=== PATIENT | female | born 1970 | race African-American/Black ===

== ENCOUNTER 2019-10-31 04:52 | Inpatient (IN) | payer OTHER ==
[2019-10-24 19:00] VITALS: BMI 25.7
[2019-10-31] MEDS ORDERED: LIDOCAINE HCL/PF 2% SDV 5ML VIAL ONE (07:41)
[2019-10-31] MEDS ORDERED: DEXAMETHASONE SOD PHOSPHATE 4 MG/1 ML VIAL ONE (07:41)
[2019-10-31] MEDS ORDERED: ROCURONIUM BROMIDE 50 MG/5 ML SYRINGE ONE ×2 (07:41→10:57)
[2019-10-31] MEDS ORDERED: MIDAZOLAM HCL 2 MG/2 ML SINGLE DOSE VIAL ONE ×2 (07:41→08:45)
[2019-10-31] MEDS ORDERED: SUCCINYLCHOLINE CHLORIDE 200 MG/10 ML SYRINGE ONE (07:41)
[2019-10-31] MEDS ORDERED: fentaNYL CITRATE 250 MCG/5 ML VIAL ONE (07:41)
[2019-10-31] MEDS ORDERED: PROPOFOL 20 ML ONE ×3 (07:41→09:37)
[2019-10-31] MEDS ORDERED: BACITRACIN 15 GM TUBE TOPICAL OINTMENT ONE (08:43)
[2019-10-31] MEDS ORDERED: BUPIVACAINE LIPOSOME/PF (EXPAREL) 266 MG/20 ML VIAL ONE (08:45)
--- NOTE | 2019-10-31 09:24 | HP ---
Admitting History and Physical - Admission Chief Complaint: Fibroid uterus History of Present Illness: 49 yo Para 2, with fibroid uterus, is pre op for abdominal hysterectomy. History Source: Patient Limitations to Obtaining History: No Limitations - Past Medical History ...LMP: 10/19/19 ...: No ...Para: 2 - Past Surgical History Past Surgical History: Yes: None - Smoking History Smoking history: Never smoked - Alcohol/Substance Use Hx Alcohol Use: Yes (OCCAS) - Social History Usual Living Arrangement: Yes: Alone History of Recent Travel: No Home Medications - Allergies Allergies/Adverse Reactions: Allergies Allergy/AdvReac Type Severity Reaction Status Date / Time peach Allergy Verified 10/31/19 07:42 BERRIES Allergy Uncoded 10/31/19 07:42 - Home Medications Home Medications: Ambulatory Orders Albuterol Sulfate Inhaler - [Ventolin Hfa Inhaler -] 1 - 2 inh PO PRN 10/24/19 Ascorbic Acid [Vitamin C] 500 mg PO DAILY 10/24/19 Biotin 2 tab PO DAILY 10/24/19 Magnesium Amino Acid Chelate [Magnesium] 100 mg PO DAILY 10/24/19 Multivitamin [One-Daily Multi-Vitamin] 1 each PO DAILY 10/24/19 Norgestimate-Ethinyl Estradiol [Femynor 28 Tablet] 1 each PO HS 10/24/19 Zinc Amino Acid Chelate [Zinc] 50 mg PO DAILY 10/24/19 Bimatoprost [Lumigan] 1 drop IO HS 10/31/19 Family Medical History Family History: Unremarkable Review of Systems - Review of Systems Constitutional: reports: No Symptoms Eyes: reports: No Symptoms HENT: reports: No Symptoms Neck: reports: No Symptoms Cardiovascular: reports: No Symptoms Respiratory: reports: No Symptoms Gastrointestinal: reports: No Symptoms Genitourinary: reports: Vaginal Bleeding Breasts: reports: No Symptoms Reported Musculoskeletal: reports: No Symptoms Integumentary: reports: No Symptoms Neurological: reports: No Symptoms Endocrine: reports: No Symptoms Hematology/Lymphatic: reports: No Symptoms Psychiatric: reports: No Symptoms Pain Intensity: 0 Physical Examination Vital Signs: Vital Signs Temperature 98.0 F 10/31/19 07:34 Pulse Rate 75 10/31/19 07:34 Respiratory Rate 16 10/31/19 07:34 Blood Pressure 123/66 10/31/19 07:34 O2 Sat by Pulse Oximetry (%) 100 10/31/19 07:33 Constitutional: Yes: Well Nourished Eyes: Yes: Conjunctiva Clear HENT: Yes: Atraumatic Neck: Yes: Supple Cardiovascular: Yes: Regular Rate and Rhythm Respiratory: Yes: Regular Gastrointestinal: Yes: Normal Bowel Sounds ...Rectal Exam: Yes: WNL Renal/: Yes: WNL Breast(s): Yes: WNL Musculoskeletal: Yes: WNL Extremities: Yes: Deformity Edema: No Integumentary: Yes: WNL Neurological: Yes: Alert, Oriented ...Motor Strength: WNL Psychiatric: Yes: Alert, Oriented Problem List - Problems (1) Leiomyoma of body of uterus Problems reviewed: Yes Code(s): D25.9 - LEIOMYOMA OF UTERUS, UNSPECIFIED Assessment/Plan Leiomyoma of the uterus Pre op for YASMINE / BSO Consent signed Anesthesia to see patient
[2019-10-31] MEDS ORDERED: ceFAZolin SODIUM 1 GM VIAL IVPB ONE (09:38)
[2019-10-31] MEDS ORDERED: ceFAZolin SODIUM 1 GM VIAL ONE (09:41)
[2019-10-31] MEDS ORDERED: ONDANSETRON 4 MG/2 ML VIAL IVPUSH PRN (10:25)
[2019-10-31] MEDS ORDERED: oxyCODONE HCL 5 MG TABLET PO PRN (10:27)
[2019-10-31] MEDS ORDERED: NEOSTIGMINE METHYLSULFATE 0.5 MG/ML - 10 ML MDV ONE (12:10)
[2019-10-31] MEDS ORDERED: GLYCOPYRROLATE 0.2 MG/1 ML VIAL ONE (12:10)
--- NOTE | 2019-10-31 13:39 | OP ---
Operative Note - Note: Operative Date: 10/31/19 Pre-Operative Diagnosis: Cosmetic Dissatisfaction Appearance of Abdomen Operation: Full Abdominoplasty done with Total Abdominal Hysterectomy Post-Operative Diagnosis: Same as Pre-op Surgeon: Hollis Morin Anesthesia: General Specimens Removed: 50cc Operative Report Dictated: Yes
--- NOTE | 2019-10-31 14:10 | OP ---
DATE OF OPERATION: 10/31/2019 PREOPERATIVE DIAGNOSIS: Cosmetic dissatisfaction with the appearance of the abdomen. POSTOPERATIVE DIAGNOSIS: Cosmetic dissatisfaction with the appearance of the abdomen. PROCEDURE PERFORMED: Full abdominoplasty done with total abdominal hysterectomy. SURGEON: Hollis Aldrich MD ANESTHESIA: General via endotracheal tube. BRIEF HISTORY: The patient is scheduled for a total abdominal hysterectomy by Dr. Toledo and requests abdominoplasty done at the same time. DESCRIPTION OF PROCEDURE: The patient was on the operating room table in supine position, and general anesthesia was administered by the anesthesiologist. The area of the abdomen was prepped and draped in the usual sterile fashion, and a Ness catheter had been inserted prior to prep. The abdominoplasty incision was marked with the patient in a standing position preoperatively, and this incision was made using a No. 10 scalpel blade and carried down sharply through subcutaneous tissues. Hemostasis was achieved with the electrocautery, and the cautery was used to continue the dissection. The dissection continued in the plane just superficial to the rectus abdominal fascia up to the level of the umbilicus. At this point, Dr. Toledo came in and performed a total abdominal hysterectomy through this open abdominal wound. At the completion of the total abdominal hysterectomy, I then continued and released the umbilicus with a circumumbilical incision and then continued dissection superiorly to the level of the costal margin. The diastasis recti was repaired using 2-0 Ethibond suture in interrupted [id number] fashion for the upper and lower abdomen, although the upper abdominal diastasis was wider. The patient was moved into a flexed position, and excess skin was measured and marked and included skin below the umbilicus and the umbilical incision was left to prevent too much tension on the resulting incision. Two around 15-Syriac Placido-Brian drains were inserted through separate stab incisions in the groin, and closure was begun. Closure was in layered fashion. Deep tissues were closed with No. 3-0 and 4-0 Biosyn suture in interrupted buried fashion, a 4-0 V-Loc 90 suture in continuous fashion was used for skin closure. The umbilicus was retrieved through a new crescent-shaped incision in the midline at the level of the iliac crest, and this was retrieved with a tonsil clamp on a silk suture tag that had been placed previously. The umbilical incision was then closed using 3-0 Biosyn suture for deep tissues and 4-0 and 5-0 nylon suture for skin. Once the wounds were completely closed, sterile dressings were applied. Xeroform was then used followed by combine pads and secured with a surgical garment. The patient was taken awoken from anesthesia without difficulty and taken from the operating room to the recovery room in satisfactory condition having tolerated the procedure well. HOLLIS ALDRICH M.D. /[id number]
[2019-10-31] MEDS ORDERED: IBUPROFEN 800 MG/8 ML IJ IVPB PRN (14:17)
--- NOTE | 2019-10-31 14:17 | OP ---
Operative Note - Note: Operative Date: 10/31/19 Pre-Operative Diagnosis: Leiomyoma of the uterus Operation: Abdominal hysterectomy / Bilateral salpingoophorectomy Findings: Enlarged irregular shape uterus Post-Operative Diagnosis: Same as Pre-op Surgeon: Katerine Toledo Clay Puddler: Hollis Morin Anesthesia: General Specimens Removed: Uterus / Fallopian tubes / Ovaries / Myoma Estimated Blood Loss (mls): 200
[2019-10-31] MEDS ORDERED: ACETAMINOPHEN 1000 MG/100 ML VIAL (NON FORMULARY) IVPB ONE (15:00)
[2019-10-31] MEDS ORDERED: ACETAMINOPHEN INJECTION 100 ML IVPB ONE (15:00)
[2019-10-31] MEDS: LACTATED RINGERS SOLUTION 1,000 ML IV SCH (17:17)
[2019-10-31] MEDS: DEXTROSE 5%-LACTATED RINGERS 1,000 ML IV SCH (17:34)
[2019-10-31] MEDS: CEFAZOLIN 2 GM/D5W 2 GM/50 ML ML IVPB SCH (17:35)
[2019-11-01] MEDS: DEXTROSE 5%-LACTATED RINGERS 1,000 ML IV SCH ×2 (01:22→15:24)
[2019-11-01] MEDS: CEFAZOLIN 2 GM/D5W 2 GM/50 ML ML IVPB SCH (01:24)
[2019-11-01] MEDS: ACETAMINOPHEN 1000 MG/100 ML VIAL (NON FORMULARY) IVPB PRN ×2 (01:25→08:50)
--- NOTE | 2019-11-01 07:32 | PN ---
Progress Note, Physician History of Present Illness: 49 yo Para 2 status post abdominal hysterectomy and abdominoplasty, seen and evaluated. Doing well, she c/o incision pain. - Current Medication List Current Medications: Active Medications Acetaminophen (Ofirmev Injection -) 1,000 mg IVPB Q6H PRN PRN Reason: Pain or fever Stop: 11/01/19 10:25 Last Admin: 11/01/19 01:25 Dose: 1,000 mg Fentanyl (Sublimaze Injection -) 50 mcg IVPUSH [id number] PRN PRN Reason: PAIN-PACU ORDER X 4 DOSES ONLY Last Admin: 10/31/19 14:30 Dose: 50 mcg Lactated Ringer's (Lactated Ringers Solution) 1,000 mls @ 75 mls/hr IV [facility] Last Admin: 10/31/19 17:17 Dose: Not Given Dextrose/Lactated Ringer's (D5-Lr -) 1,000 mls @ 125 mls/hr IV [facility] Last Admin: 11/01/19 01:22 Dose: 125 mls/hr Ibuprofen (Caldolor Injection -) 800 mg IVPB Q8H PRN PRN Reason: FEVER Ondansetron HCl (Zofran Injection) 4 mg IVPUSH Q6H PRN PRN Reason: NAUSEA AND/OR VOMITING Oxycodone HCl (Roxicodone -) 5 mg PO Q3H PRN PRN Reason: PAIN LEVEL 1-5 Oxycodone HCl (Roxicodone -) 10 mg PO Q3H PRN PRN Reason: PAIN LEVEL 6-10 - Objective Vital Signs: Vital Signs Temperature 98.2 F 11/01/19 05:33 Pulse Rate 70 11/01/19 05:33 Respiratory Rate 20 11/01/19 05:33 Blood Pressure 125/72 11/01/19 05:33 O2 Sat by Pulse Oximetry (%) 98 10/31/19 21:00 Constitutional: No: No Distress Eyes: Yes: Conjunctiva Clear Neck: Yes: Supple Cardiovascular: Yes: Regular Rate and Rhythm Respiratory: No: Orthopnea, SOB on Exertion Gastrointestinal: Yes: Tenderness Wound/Incision: Yes: Dressing Dry and Intact Neurological: Yes: Alert, Oriented ...Motor Strength: WNL Psychiatric: Yes: Alert, Oriented Problem List - Problems (1) Leiomyoma of body of uterus Problems reviewed: Yes Code(s): D25.9 - LEIOMYOMA OF UTERUS, UNSPECIFIED Assessment/Plan Leiomyoma of the uterus Status post abdominal hysterectomy Ambulation Analgesia as needed Continue post op care
--- NOTE | 2019-11-01 10:02 | PN ---
Progress Note (short form) - Note Progress Note: Post op day#1.S/p YASMINE and abdominoplasty under GA with TAP block uneventful.Patient stable.No any anesthesia related problem.Patient DC from the anesthesia care.
[2019-11-01 10:03] LABS: BASO % 0.2 % (0-2.0); EOS % 0.1 % (0-4.5); HEMATOCRIT 31.7 % (32.4-45.2); HEMOGLOBIN 10.7 GM/dL (10.7-15.3); LYMPH % 14.4 % (8-40); MCH 33.2 pg (25.7-33.7); MCHC 33.8 g/dl (32.0-36.0); MEAN CELL VOLUME 98.2 fl (80-96); MEAN PLT VOLUME 9.1 fl (7.5-11.1); MONO % 8.5 % (3.8-10.2); NEUT % 76.8 % (42.8-82.8); PLATELET COUNT 222 K/MM3 (134-434); RBC 3.22 M/mm3 (3.60-5.2); RDW 12.3 % (11.6-15.6); WHITE BLOOD COUNT 14.5 K/mm3 (4.0-10.0)
[2019-11-01 10:24] LABS: BLOOD UREA NITROGEN 6.6 mg/dL (7-18); CALCIUM 8.6 mg/dL (8.5-10.1); CREATININE 0.9 mg/dL (0.55-1.3); POTASSIUM 4.3 mmol/L (3.5-5.1)
[2019-11-01] MEDS: LACTATED RINGERS SOLUTION 1,000 ML IV SCH (12:08)
[2019-11-01] MEDS: metroNIDAZOLE 250 MG TABLET PO SCH ×2 (14:16→21:24)
[2019-11-01] MEDS: DOXYCYCLINE HYCLATE 100 MG CAPSULE PO SCH (17:44)
--- NOTE | 2019-11-01 17:50 | PN ---
Progress Note (short form) - Note Progress Note: POD #1- S/P Hysterectomy/Abdominoplasty Afebrile, Patient oob in chair, vomiting. TAMMIE Drainage 50cc last shift. Wounds clean/dry. Plan- Continue Antibiotics, Continue TAMMIE Drains, Change to Clear Liquid diet for now.Encourage walking with assistance.
[2019-11-01] MEDS: oxyCODONE HCL 5 MG TABLET PO PRN (18:20)
[2019-11-02] MEDS: oxyCODONE HCL 5 MG TABLET PO PRN (04:07)
[2019-11-02] MEDS: DOXYCYCLINE HYCLATE 100 MG CAPSULE PO SCH (09:34)
[2019-11-02] MEDS: metroNIDAZOLE 250 MG TABLET PO SCH (09:35)
[2019-11-02 18:03] LABS: BASO % 0.5 % (0-2.0); EOS % 0.6 % (0-4.5); HEMATOCRIT 30.5 % (32.4-45.2); LYMPH % 15.1 % (8-40); MCH 32.9 pg (25.7-33.7); MCHC 32.9 g/dl (32.0-36.0); MEAN CELL VOLUME 100.1 fl (80-96); MEAN PLT VOLUME 9.1 fl (7.5-11.1); MONO % 6.6 % (3.8-10.2); NEUT % 77.2 % (42.8-82.8); PLATELET COUNT 214 K/MM3 (134-434); RBC 3.04 M/mm3 (3.60-5.2); RDW 12.8 % (11.6-15.6); WHITE BLOOD COUNT 13.3 K/mm3 (4.0-10.0)
[2019-11-02] MEDS ORDERED: CEFAZOLIN 2 GM/D5W 2 GM/50 ML ML IVPB ONE (19:32)
--- NOTE | 2019-11-02 19:33 | PN ---
Progress Note, Physician Chief Complaint: Post op History of Present Illness: 49 yo Para 2 status post abdominal hysterectomy and abdominoplasty, seen and evaluated. Doing well, she c/o incision pain. - Current Medication List Current Medications: Active Medications Fentanyl (Sublimaze Injection -) 50 mcg IVPUSH [id number] PRN PRN Reason: PAIN-PACU ORDER X 4 DOSES ONLY Last Admin: 10/31/19 14:30 Dose: 50 mcg Lactated Ringer's (Lactated Ringers Solution) 1,000 mls @ 75 mls/hr IV [facility] Last Admin: 11/01/19 12:08 Dose: Not Given Dextrose/Lactated Ringer's (D5-Lr -) 1,000 mls @ 125 mls/hr IV [facility] Last Admin: 11/01/19 15:24 Dose: Not Given Cefazolin Sodium 2 gm/ (Dextrose) 50 mls @ 100 mls/hr IVPB ONCE ONE Stop: 11/02/19 20:01 Ibuprofen (Caldolor Injection -) 800 mg IVPB Q8H PRN PRN Reason: FEVER Ondansetron HCl (Zofran Injection) 4 mg IVPUSH Q6H PRN PRN Reason: NAUSEA AND/OR VOMITING Last Admin: 11/01/19 15:28 Dose: 4 mg Oxycodone HCl (Roxicodone -) 5 mg PO Q3H PRN PRN Reason: PAIN LEVEL 1-5 Last Admin: 11/01/19 14:15 Dose: 5 mg Oxycodone HCl (Roxicodone -) 10 mg PO Q3H PRN PRN Reason: PAIN LEVEL 6-10 Last Admin: 11/02/19 04:07 Dose: 10 mg - Objective Vital Signs: Vital Signs Temperature 98.2 F 11/02/19 16:17 Pulse Rate 78 11/02/19 16:17 Respiratory Rate 20 11/02/19 16:17 Blood Pressure 130/78 11/02/19 16:17 O2 Sat by Pulse Oximetry (%) 97 11/01/19 21:00 Constitutional: Yes: No Distress Neck: Yes: Supple Cardiovascular: Yes: Regular Rate and Rhythm Respiratory: Yes: Regular Gastrointestinal: Yes: Normal Bowel Sounds, Tenderness Genitourinary: Yes: WNL Musculoskeletal: Yes: WNL Extremities: Yes: WNL Wound/Incision: Yes: Dressing Dry and Intact Neurological: Yes: Alert, Oriented ...Motor Strength: WNL Psychiatric: Yes: Alert, Oriented Labs: CBC, BMP 11/02/19 17:50 11/01/19 09:41 Problem List - Problems (1) Leiomyoma of body of uterus Problems reviewed: Yes Code(s): D25.9 - LEIOMYOMA OF UTERUS, UNSPECIFIED Assessment/Plan Leiomyoma of the uterus Status post abdominal hysterectomy Ambulation Analgesia as needed Continue post op care
[2019-11-03] MEDS: SIMETHICONE 80 MG TAB.CHEW (FP) PO PRN ×2 (06:35→11:15)
--- NOTE | 2019-11-03 09:04 | DS ---
Physical Examination Vital Signs: Vital Signs Temperature 98 F 11/03/19 05:31 Pulse Rate 85 11/03/19 05:31 Respiratory Rate 20 11/03/19 05:31 Blood Pressure 122/62 11/03/19 05:31 O2 Sat by Pulse Oximetry (%) 100 11/02/19 21:00 Constitutional: Yes: No Distress Eyes: Yes: Conjunctiva Clear HENT: Yes: Atraumatic Neck: Yes: Supple Cardiovascular: Yes: Regular Rate and Rhythm Respiratory: Yes: Regular Gastrointestinal: Yes: Normal Bowel Sounds Breast(s): Yes: WNL Musculoskeletal: Yes: WNL Extremities: Yes: WNL Neurological: Yes: Alert, Oriented ...Motor Strength: WNL Psychiatric: Yes: Alert, Oriented Labs: CBC, BMP 11/02/19 17:50 11/01/19 09:41 Discharge Summary Problems reviewed: Yes Reason For Visit: LEIOMYOMA OF UTERUS Current Active Problems Leiomyoma of body of uterus (Acute) Procedures: Principal: Abdominal hysterectomy / Bilateral salpingectomy Other Procedures: Abdominoplasty Hospital Course: Patient received additional dosage of antibiotic. No blood transfusion required. Otherwise routine post op care Health Concerns: Thromboembolic event Plan of Treatment: Analgesia Continue ambulation Increase fluid intake F/U with MD in 2 weeks Goals: Resume normal activities in 3-4 weeks Condition: Good - Instructions Diet, Activity, Other Instructions: Regular diet Ambulation Analgesia as needed F/U with MD in 2 weeks Disposition: HOME - Home Medications Comprehensive Discharge Medication List: Ambulatory Orders Albuterol Sulfate Inhaler - [Ventolin Hfa Inhaler -] 1 - 2 inh PO PRN 10/24/19 Ascorbic Acid [Vitamin C] 500 mg PO DAILY 10/24/19 Biotin 2 tab PO DAILY 10/24/19 Magnesium Amino Acid Chelate [Magnesium] 100 mg PO DAILY 10/24/19 Multivitamin [One-Daily Multi-Vitamin] 1 each PO DAILY 10/24/19 Norgestimate-Ethinyl Estradiol [Femynor 28 Tablet] 1 each PO HS 10/24/19 Zinc Amino Acid Chelate [Zinc] 50 mg PO DAILY 10/24/19 Bimatoprost [Lumigan] 1 drop IO HS 10/31/19 Oxycodone HCl/Acetaminophen [Percocet 5-325 mg Tablet] 1 tab PO Q6H #30 tablet MDD 20 11/02/19
[2019-11-03 15:49] VITALS: BP 102/64; PULSE 86; TEMP 98.3
--- NOTE | 2019-11-05 15:12 | PATH ---
Surgical Pathology Report Patient Name: PEDRO JONES [facility]. Rec. #: [id number] /Age/Gender: 1970 (Age: 49) / F Account: [id number] Location: [address] [place] [address] Taken: 10/31/2019 Received: 10/31/2019 Reported: 11/05/2019 Physicians: Katerine Toledo M.D. Specimen(s) Received UTERUS, OVARIES AND FALLOPIAN TUBES, RIGHT AND LEFT Clinical History Leiomyoma of uterus Final Diagnosis UTERUS, OVARIES AND FALLOPIAN TUBES, RIGHT AND LEFT, ABDOMINAL HYSTERECTOMY AND BILATERAL OOPHORECTOMY: 439 G UTERUS. LEIOMYOMA(TA), SUBSEROSAL, SUBMUCOSAL, INTRAMURAL. SCANT INACTIVE AND BASALIS ENDOMETRIUM. MYOMETRIUM WITH ADENOMYOSIS. FOCAL SEROSAL ADHESIONS. BILATERAL FALLOPIAN TUBES WITH PARATUBAL CYST AND ENDOSALPINGOSIS. LEFT OVARY WITH HEMORRHAGIC CORPUS LUTEUM CYST. UNREMARKABLE RIGHT OVARY. Electronically Signed Lynn Sutton M.D. Gross Description Received in formalin labeled "uterus, left and right ovaries and fallopian tubes," is a 439 g supracervically amputated uterus with bilateral attached adnexa. The specimen measures 12 cm from superior to inferior, 10 cm from anterior to posterior and 8.5 cm from left to right. The serosa displays focal adhesions as well as a focal defect at the inferior aspect of the specimen. There are multiple bulging subserosal nodules present. The endometrial cavity measures 7.8 cm in length and 4.0 cm from cornu to cornu. The endometrium is kilgore and averages 0.1 cm in thickness. There are multiple submucosal nodules present. Sectioning of the myometrium displays abundant intramural nodules, measuring up to 4.0 cm in greatest dimension. One of the intramural nodules displays central necrosis. The remaining subserosal, submucosal and intramural nodules are kilgore and rubbery with whorled architecture. The remaining myometrium is kilgore pantoja and measures up to 5 cm in thickness. The left fimbriated fallopian tube measures 5 cm in length and displays a 0.8 cm in greatest dimension paratubal cyst attached to the fimbria. The outer surface of the fallopian tube is dean purple and smooth. Sectioning reveals an unremarkable lumen. The left ovary measures 4.4 x 4.0 x 1.3 cm. The outer surface is dean purple and smooth. Sectioning reveals multiple ovarian cysts, measuring up to 3.5 cm in greatest dimension. The cysts contain clear serous fluid. The remaining ovarian parenchyma is kilgore-dean and unremarkable. The right fimbriated fallopian tube measures 5.5 cm in length. The outer surface is dean purple and smooth. Sectioning reveals an unremarkable lumen. The right ovary measures 2.5 x 2.3 x 1.0 cm. The outer surface is kilgore pantoja and smooth. Sectioning reveals unremarkable ovarian parenchyma. Separately received within the same container is a 173 g, 8.0 x 6.5 x 6.3 cm nodule, consistent with a fibroid. The outer surface is smooth. Sectioning reveals kilgore, rubbery parenchyma with whorled architecture. No areas of hemorrhage or necrosis are identified. Court Registry Officer sections are submitted in 23 cassettes as follows: 1-cervical stump margin of resection; 4-6-wdignkucsrhcgk; 6-submucosal nodules; 3-4-khfligafru nodules; 2-54-hhzmvoewmo nodule with necrosis; 06-11-nsainthuxn intramural nodules; 08-85-ewidwlooqq received fibroid; 17-left fallopian tube fimbria with paratubal cyst; 18-cross sections of left fallopian tube; 19-left ovarian cysts; 20-additional left ovary; 21-right fallopian tube fimbria; 22-cross sections of right fallopian tube; 23-right ovary. DL11/01/2019 saudi11/01/2019
--- NOTE | 2019-11-07 10:12 | OP ---
DATE OF OPERATION: 10/31/2019 PREOPERATIVE DIAGNOSIS: Leiomyoma of the uterus. POSTOPERATIVE DIAGNOSIS: Leiomyoma of the uterus. PROCEDURE: Total abdominal hysterectomy and bilateral salpingo-oophorectomy. SURGEON: Katerine Toledo MD SALES CLERK SUPERVISOR: Hollis Morin MD, the plastic surgeon. ANESTHESIA: General. COMPLICATIONS: None. ESTIMATED BLOOD LOSS: 200 mL. DESCRIPTION OF PROCEDURE: Patient was taken to the operating room where general anesthesia was administered. Patient was then prepped and draped in proper sterile fashion. The patient was supposed to have an abdominoplasty; so, the abdomen was opened by the plastic surgeon. Then, once the abdomen was opened, the fascia was exposed, and I made a transverse incision on the fascia. The inferior end of the fascia was grasped with Kochers and from the fascia, and then, the attention was then turned to the superior aspect of the fascia which, in a similar fashion, was then grasped with the Bernard clamps, elevated, and the rectus muscle was then in the midline. The peritoneum identified and entered sharply with the Metzenbaum scissors. This incision was extended superiorly and inferiorly with good visualization of the bladder. Then, a survey of the patient's pelvis revealed an enlarged, irregular-shaped, leiomyomatous uterus. Using a , the enlarged uterus was then exteriorized with the help of a . Then, the bowel was packed with moist laparotomy sponges. Then, using the LigaSure device, the round ligaments on both sides were clamped, burnt, and transected. The anterior leaf of the broad ligament was incised along the bladder reflection to the midline from both sides. The bladder was then gently dissected off the lower uterine segment and cervix with a sponge stick. The infundibulopelvic ligaments on both sides were then clamped using the LigaSure device, burnt, and cut. Hemostasis was visualized. The uterine artery on the left side was then skeletonized, clamped, burnt, and cut using the LigaSure device. Due to the lack of visualization on the right side, myoma was removed to allow access to the right side of the uterus. Once the myoma was removed, the LigaSure was used to clamp the right uterine artery, and it was then burnt and cut. Again, hemostasis was assured. Then, the uterosacral ligaments were also clamped with the LigaSure device on both sides and burnt and cut. Then, using the Bovie cautery, the uterus was then amputated off the cervix. Then, the cervical stump was then closed using a 1-0 Vicryl suture. The angles were transfixed to the ipsilateral cardinal and uterosacral ligaments. The remainder of the cervix was closed in a series of interrupted 1-0 Vicryl [id number] sutures. Hemostasis was assured. The pelvis was then copiously irrigated with warm normal saline. All laparotomy sponges and instruments were removed from the abdomen. The Interceed was placed over the cervical stump, and the peritoneum was closed using 2-0 Biosyn. The fascia was reapproximated using 0 Vicryl, and the plastic surgeon took over to proceed with the abdominoplasty. KATERINE TOLEDO M.D. KARLA/[id number]
== END 2019-11-03 15:49 | disposition home or self-care (01) | DRG 519 ==
LOC: JSAMEDAYSX 04:52 → J6S 16:33
PROVIDERS: ADMIT Obstetrics & Gynecology; ATTEND Obstetrics & Gynecology
PROC: 0UT20ZZ Resection of Bilateral Ovaries, Open Approach (ICD-10-PCS; 2019-10-31)
PROC: 0UT70ZZ Resection of Bilateral Fallopian Tubes, Open Approach (ICD-10-PCS; 2019-10-31)
PROC: 0W0F0ZZ Alteration of Abdominal Wall, Open Approach (ICD-10-PCS; principal; 2019-10-31 09:52)
PROC: 0UT90ZZ Resection of Uterus, Open Approach (ICD-10-PCS; 2019-10-31 09:52)
DX: D25.9 Leiomyoma of uterus, unspecified (principal); Z41.1 Encounter for cosmetic surgery; G89.18 Other acute postprocedural pain
CPT/HCPCS: 36415; 80048; 84703; 85025; 86850; 86900; 86901; 86922; 88307-TC; 94760; J0131